=== PATIENT | female | born 1995 | race American Indian/Alaskan Native ===

== ENCOUNTER 2017-03-11 17:59 | Emergency (ER) | payer MEDICAID ==
--- NOTE | 2017-03-11 18:37 | Emergency Department Report ---
Entered by LINDA KONG, acting as scribe for SAUNDRA GUTIERREZ PA. Chief Complaint: Fall Stated Complaint: PREG/FALL/ABD PAIN Time Seen by Provider: 03/11/17 18:11 - HPI History of Present Illness: Pt that is c/o of 10, cramping periumbilical abdominal pain that began 2 days ago. Pt states she fell down a flight of stairs 2 days ago. Patient states she know she's from a positive urine test at a doctor's office, but she doesn't know how far along she is. Reports nausea and vomiting Reports low back pain Reports vaginal discharge Denies vaginal bleeding Denies urinary urgency and frequency Denies fever and chills LMP 12/03/2016 A2 Notes she has a PCP, but she denies having an OB. - ROS Review of Systems: All system are negative unless stated in HPI above. - Exam Vital Signs: Vital Signs 03/11/17 18:04 Temperature 98.4 F Pulse Rate 81 Respiratory 16 Rate Blood Pressure 114/66 O2 Sat by Pulse 100 Oximetry Physical Exam: General: well nourished, well developed, 22 year old female in no acute distress and nontoxic in appearance Abdomen: Soft, normal bowel sounds in all quadrants and negative CVA tenderness bilaterally. No guarding or rebound. Tender to palpation to periumbilical area Lungs: Clear to auscultation bilaterally, no rhonchi, wheezes, or rales. Normal work of breathing. No use of accessory muscles Cardiovascular: S1-S2, regular rate, regular rhythm. No murmurs. MSE screening note: Focused history and physical exam performed. Due to findings the following was ordered: see below ED Medical Decision Making - Medical Decision Making MDM: Patient screened by provider in triage area. Appropriate protocol initiated. Patient to be seen by MD on main ED side. ED Disposition for MSE Condition: Stable This documentation as recorded by the scribe,LINDA KONG,accurately reflects the service I personally performed and the decisions made by me,SAUNDRA GUTIERREZ PA.
[2017-03-11 19:00] LABS: Basophils % (Auto) 0.6 % (0.0-1.8); Eosinophils % (Auto) 1.6 % (0.0-4.3); Hematocrit 34.7 % (30.3-42.9); Hemoglobin 11.9 gm/dl (10.1-14.3); Mean Corpuscular HGB Conc 34 % (30-34); Mean Corpuscular Hemoglobin 32 pg (28-32); Mean Corpuscular Volume 92 fl (79-97); Platelet Count 216 K/mm3 (140-440); Red Blood Count 3.76 M/mm3 (3.65-5.03); White Blood Count 4.9 K/mm3 (4.5-11.0)
[2017-03-11 20:08] LABS: Bilirubin,Urine NEG (Negative); Blood,Urine SM (Negative); Ketones,Urine 80 mg/dL (Negative); Leukocyte Esterase,Urine TR (Negative); Mucus,Urine 3+ /HPF; Nitrite,Urine NEG (Negative)
[2017-03-11 21:45] LABS: Alanine Aminotransferase 15 units/L (7-56); Albumin 4.3 g/dL (3.9-5); Albumin/Globulin Ratio 1.6 %; Alkaline Phosphatase 53 units/L (35-129); Anion Gap 17 mmol/L; Blood Urea Nitrogen 9 mg/dL (7-17); Calcium 9.1 mg/dL (8.4-10.2); Carbon Dioxide 25 mmol/L (22-30); Chloride 97.6 mmol/L (98-107); Glucose 89 mg/dL (65-100); Lipase 12 units/L (13-60); Potassium 3.9 mmol/L (3.6-5.0); Sodium 136 mmol/L (137-145)
--- NOTE | 2017-03-11 22:57 | Emergency Department Report ---
HPI - General Chief Complaint: Fall Time Seen by Provider: 03/11/17 22:37 - HPI HPI: This is a 22-year-old Afro-Mac[place] female who presents the emergency department with complaint of some lower abdominal discomfort after falling down 4-5 stairs. She says that she tripped and fell onto her abdomen and her arm. She said that she had a bruise in both areas but that has since resolved. Since this incident she has been having nausea and vomiting and has been having trouble keeping down both liquids and solids. The patient is currently and is but she is unsure how far along she is. Her last menstrual cycle was October 24. She had 2 previous abortions. She does not currently have an SPRAYER INSECTICIDE. She is taking vitamins. No recent travel or sick contacts at home. She denies hitting her head or any loss of consciousness. ED Past Medical Hx - Past Medical History Previous Medical History?: No Hx Hypertension: No Hx Heart Attack/AMI: No Hx Congestive Heart Failure: No Hx Diabetes: No Hx Deep Vein Thrombosis: No Hx Pulmonary Embolism: No Hx Liver Disease: No Hx Renal Disease: No Hx Sickle Cell Disease: No Hx Headaches / Migraines: No Hx Seizures: No Hx Asthma: No Hx COPD: No Hx Tuberculosis: No Hx HIV: No - Surgical History Past Surgical History?: No Hx Pacemaker: No Hx Internal Defibrillator: No - Social History Smoking Status: Current Every Day Smoker Substance Use Type: Alcohol - Medications Home Medications: Home Medications Medication Instructions Recorded Confirmed Last Taken Type No Known Home Medications [No 08/13/14 03/11/17 Unknown History Reported Home Medications] ED Review of Systems ROS: Stated complaint: PREG/FALL/ABD PAIN Other details as noted in HPI Comment: All other systems reviewed and negative Constitutional: denies: chills, fever Eyes: denies: eye pain, eye discharge, vision change ENT: denies: ear pain, throat pain Respiratory: denies: cough, shortness of breath, wheezing Cardiovascular: denies: chest pain, palpitations Gastrointestinal: abdominal pain, nausea, vomiting Genitourinary: denies: urgency, dysuria, discharge Musculoskeletal: denies: back pain, joint swelling, arthralgia Skin: denies: rash, lesions Neurological: denies: headache, weakness, paresthesias Physical Exam - Physical Exam Vital Signs: Vital Signs 03/11/17 03/11/1703/11/17 18:04 21:59 22:04 Temperature 98.4 F 97.7 F Pulse Rate 81 70 68 Respiratory 16 16 18 Rate Blood Pressure 114/66 Blood Pressure 97/46 [Left] O2 Sat by Pulse 100 100 100 Oximetry Physical Exam: GENERAL: The patient is well-developed well-nourished. HEENT: Normocephalic. Atraumatic. Extraocular motions are intact. Patient has moist mucous membranes. Pupils equal reactive to light bilaterally. NECK: Supple. Trachea is midline. CHEST/LUNGS: Clear to auscultation. There is no respiratory distress noted. HEART/CARDIOVASCULAR: Regular. There is no tachycardia. There is no gallop rub or murmur. ABDOMEN: Abdomen is soft. There is some mild generalized tenderness to palpation of the abdomen. No guarding or rebound tenderness. No peritoneal signs. Patient has normal bowel sounds. There is no abdominal distention. SKIN: Skin is warm and dry. NEURO: The patient is awake, alert, and oriented. The patient is cooperative. The patient has no focal neurologic deficits. The patient has normal speech. MUSCULOSKELETAL: There is no tenderness or deformity. There is no limitation range of motion. There is no evidence of acute injury. ED Course Vital Signs 03/11/17 03/11/17 03/11/17 18:04 21:59 22:04 Temperature 98.4 F 97.7 F Pulse Rate 81 70 68 Respiratory 16 16 18 Rate Blood Pressure 114/66 Blood Pressure 97/46 [Left] O2 Sat by Pulse 100 100 100 Oximetry ED Medical Decision Making - Lab Data Result diagrams: 03/11/17 18:51 03/11/17 18:51 - Radiology Data Radiology results: report reviewed Transvaginal/ ultrasound shows a single intrauterine with a gestational age of 11 weeks and 3 days. Probable small subchorionic hemorrhage. - Medical Decision Making 22-year-old female presents to the emergency department with a complaint of lower abdominal discomfort while after falling on her abdomen a few days ago. Her belly is soft without any obvious deformities. She has good bowel sounds. An ultrasound was done that shows a live intrauterine at about 11 weeks and 3 days. The rest of her labs are unremarkable do not show any etiology of her symptoms. She did complain of some nausea and vomiting but it appears to have been going on since prior to the fall and may just be some hyperemesis. However she was given some IV fluid and after this she was able to keep down some water and even some food. She did have some dehydration on urinalysis but there was no urinary tract infection. Vital signs stable throughout her ED course. She will follow up with a primary care physician and [employer]IC[employer] and will return to the emergency department with any worsening of her symptoms or any acute distress. - Differential Diagnosis , threatened miscarriage, spontaneous miscarriage, colitis Critical Care Time: No Critical care attestation.: If time is entered above; I have spent that time in minutes in the direct care of this critically ill patient, excluding procedure time. ED Disposition Clinical Impression: Dehydration Qualifiers: Weeks of gestation: 11 weeks Qualified Code(s): Z3A.11 - 11 weeks gestation of Fall Qualifiers: Encounter type: initial encounter Qualified Code(s): W19.XXXA - Unspecified fall, initial encounter Abdominal pain Qualifiers: Abdominal location: unspecified location Qualified Code(s): R10.9 - Unspecified abdominal pain Nausea & vomiting Qualifiers: Vomiting type: unspecified Vomiting Intractability: non-intractable Qualified Code(s): R11.2 - Nausea with vomiting, unspecified Disposition: DC-01 TO HOME OR SELFCARE Is pt being admited?: No Condition: Stable Instructions: (ED), Dehydration (ED), Acute Nausea and Vomiting (ED) , Abdominal Pain (ED) Additional Instructions: Please increase her oral rehydration. Follow up with your [employer]ER INSECTICIDE in the next few days. Return to the emergency department with any worsening of your symptoms, vaginal bleeding, or any acute distress. Continue with your vitamins. You can take Tylenol every 4 hours, using weight-based dosing, as needed for discomfort. Otherwise do not take any medications that are not prescribed by a physician. Referrals: PRIMARY MD JENNIFER [Primary Care Provider] - IAN Time of Disposition: 02:04
[2017-03-11] MEDS: NACL 0.9% 1000 ML 1,000 ML IV ONE (23:10)
[2017-03-11] MEDS: TYLENOL PO ONE (23:10)
--- NOTE | 2017-03-11 23:45 | Ultrasound Report ---
FINAL REPORT PROCEDURE: Obstetrical ultrasound. TECHNIQUE: Real-time transabdominal sonography of the uterus, placenta, amniotic fluid, adnexa, and fetus was performed with image documentation. Measurements were obtained to determine age/size. M-mode Doppler was used to document heartbeat. CPT 15511 HISTORY: Patient fell on Satur, lower abdominal pain. COMPARISON: No prior studies are available for comparison. FINDINGS: The uterus measures 12.9 centimeters x 8.0 centimeters x 10.7 centimeters. The myometrium appears uniform. The left ovary appears normal in size. There is a small cyst in the left ovary. The right ovary is suboptimally visualized. The patient refused a transvaginal exam. There is an intrauterine gestational sac. There is a small hypoechoic area adjacent to the gestational sac. This measures 3.8 centimeters x 0.5 centimeters x 1.9 centimeters. It likely represents a small subchorionic hemorrhage. The crown-rump length measurement of the pole is 4.5 centimeters. This indicates a menstrual age of 11 weeks 3 days. The estimated date of confinement is 09/27/2017. Cardiac activity is documented at 169 beats per minute. The placenta is posterior in location. IMPRESSION: Single intrauterine with a menstrual age of 11 weeks 3 days. Probable small subchorionic hemorrhage.
[2017-03-12 02:12] VITALS: BP 99/51
== END 2017-03-12 02:41 | disposition home or self-care (01) ==
LOC: ED 17:59
DX: O9A.211 Injury, poisoning and certain other consequences of external causes complicating pregnancy, first trimester (principal); O21.0 Mild hyperemesis gravidarum; R10.9 Unspecified abdominal pain; E86.0 Dehydration; O99.331 Smoking (tobacco) complicating pregnancy, first trimester; Z3A.11 11 weeks gestation of pregnancy
CPT/HCPCS: 36415; 76801; 80053; 81001; 83690; 84703; 85025; 96360; 96361; 99284; J7030

== ENCOUNTER 2017-08-17 16:28 | Outpatient (CLI) | payer MEDICAID ==
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
[2017-08-17] MEDS ORDERED: LACTATED RINGERS 500 ML IV ONE (18:00)
[2017-08-17] MEDS ORDERED: TYLENOL PO ONE (18:00)
[2017-08-17] MEDS ORDERED: VISTARIL PO PRN (18:21)
[2017-08-17 18:38] VITALS: BP 92/53
== END 2017-08-17 18:50 | disposition home or self-care (01) ==
LOC: TRG 16:28
PROVIDERS: ATTEND Obstetrics & Gynecology
DX: O47.03 False labor before 37 completed weeks of gestation, third trimester (principal); Z87.891 Personal history of nicotine dependence; Z3A.34 34 weeks gestation of pregnancy
CPT/HCPCS: 59025; Q0177

== ENCOUNTER 2017-09-16 18:03 | Outpatient (CLI) | payer MEDICAID ==
[2017-09-16 18:43] VITALS: BP 106/62
== END 2017-09-16 19:18 | disposition home or self-care (01) ==
LOC: TRG 18:03
PROVIDERS: ATTEND Obstetrics & Gynecology
DX: O47.1 False labor at or after 37 completed weeks of gestation (principal); Z87.891 Personal history of nicotine dependence; Z3A.38 38 weeks gestation of pregnancy
CPT/HCPCS: 59025

== ENCOUNTER 2018-03-18 16:15 | Emergency (ER) | payer MEDICAID ==
[2018-03-18 09:50] LABS: Bacteria,Urine 1+ /HPF (Negative); Bilirubin,Urine NEG (Negative); Blood,Urine NEG (Negative); Color,Urine Yellow (Yellow); Mucus,Urine 2+ /HPF; Protein,Urine <15 mg/dL mg/dL (Negative)
--- NOTE | 2018-03-18 09:54 | Emergency Department Report ---
Blank Doc - Documentation Documentation: Patient is a 23-year-old Female who is presenting with 2 weeks of abdominal pain. Patient states that it is a cramping sensation is worse when she is trying a bowel movement. Patient does have some loose stools. Patient denies any fever nausea vomiting at this time. Patient states pain is 8 out of 10 in severity. Patient denies any abnormal vaginal bleeding or dysuria or vaginal discharge at this time. Brief physical exam patient does have diffuse abdominal discomfort with no rebound or guarding. Patient is in moderate amount of distress secondary to pain. Last been ordered and CT will be done patient be reassessed.
[2018-03-18 10:00] LABS: Basophils # (Auto) 0.1 K/mm3 (0.0-0.1); Basophils % (Auto) 0.7 % (0.0-1.8); Eosinophils # (Auto) 0.3 K/mm3 (0.0-0.4); Hematocrit 37.8 % (30.3-42.9); Hemoglobin 12.8 gm/dl (10.1-14.3); Lymphocytes # (Auto) 2.5 K/mm3 (1.2-5.4); Lymphocytes % (Auto) 29.8 % (13.4-35.0); Mean Corpuscular HGB Conc 34 % (30-34); Mean Corpuscular Hemoglobin 31 pg (28-32); Mean Corpuscular Volume 93 fl (79-97); Monocytes # (Auto) 0.5 K/mm3 (0.0-0.8); Monocytes % (Auto) 5.4 % (0.0-7.3); Platelet Count 296 K/mm3 (140-440); Red Blood Count 4.08 M/mm3 (3.65-5.03); Red Cell Distribution Width 13.7 % (13.2-15.2)
[2018-03-18 10:14] LABS: Alanine Aminotransferase 31 units/L (7-56); Albumin 4.4 g/dL (3.9-5); BUN/Creatinine Ratio 17; Blood Urea Nitrogen 12 mg/dL (7-17); Calcium 9.6 mg/dL (8.4-10.2); Hemolysis Index 89
--- NOTE | 2018-03-18 12:04 | Emergency Department Report ---
ED HPI - General Chief complaint: Abdominal Pain Stated complaint: PELVIC PAIN Time Seen by Provider: 03/18/18 09:49 Source: patient, EMS Mode of arrival: Ambulatory Limitations: No Limitations - History of Present Illness Initial comments: This is a 23-year-old female nontoxic, well nourished in appearance, no acute signs of distress presents to the ED with c/o of pelvic pain 2 weeks. Patient denies any vomiting or nausea. Patient describes pelvic pain as cramping and aching with level of 3/10 diffuse. Patient denies chest pain, short of breath, fever, chills, headache, stiff neck, numbness or tingling. Patient denies any diarrhea or constipation. Patient denies any vaginal bleeding or discharge. Patient denies any recent travels. Patient denies any allergies or PMH. MD Complaint: abdominal pain -: week(s) (2) Location: pelvis Radiation: none Severity scale (0 -10): 3 Quality: cramping, aching Consistency: constant Improves with: none Worsens with: none Associated symptoms: abdominal pain (pelvic). denies: nausea/vomiting, vaginal bleeding, vaginal discharge, dysuria, headache, vision changes, malaise, dysparuenia, rash, seizure, shortness of breath, syncope, weakness Vaginal bleeding: none :: Yes Pre-vandana care: none - Related Data Previous Rx's Medication Instructions Recorded Last Taken Type Ibuprofen [Motrin 600 MG tab] 600 mg PO Q8H PRN #30 tablet 09/17/17 1 Week Ago Rx ~10/31/17 Allergies Allergy/AdvReac Type Severity Reaction Status Date / Time No Known Allergies Allergy Verified 03/18/18 09:31 ED Review of Systems ROS: Stated complaint: PELVIC PAIN Other details as noted in HPI Constitutional: denies: chills, fever Eyes: denies: eye pain, eye discharge, vision change ENT: denies: ear pain, throat pain Respiratory: denies: cough, shortness of breath, wheezing Cardiovascular: denies: chest pain, palpitations Endocrine: no symptoms reported Gastrointestinal: abdominal pain. denies: nausea, vomiting, diarrhea Genitourinary: denies: urgency, dysuria, discharge Musculoskeletal: denies: back pain, joint swelling, arthralgia Skin: denies: rash, lesions Neurological: denies: headache, weakness, paresthesias Psychiatric: denies: anxiety, depression Hematological/Lymphatic: denies: easy bleeding, easy bruising ED Past Medical Hx - Past Medical History Hx Hypertension: No Hx Heart Attack/AMI: No Hx Congestive Heart Failure: No Hx Diabetes: No Hx Deep Vein Thrombosis: No Hx Pulmonary Embolism: No Hx Liver Disease: No Hx Renal Disease: No Hx Sickle Cell Disease: No Hx Headaches / Migraines: No Hx Seizures: No Hx Asthma: No Hx COPD: No Hx Tuberculosis: No Hx HIV: No - Surgical History Hx Pacemaker: No Hx Internal Defibrillator: No - Social History Smoking Status: Current Every Day Smoker Substance Use Type: Alcohol - Medications Home Medications: Home Medications Medication Instructions Recorded Confirmed Last Taken Type Ibuprofen [Motrin 600 MG tab] 600 mg PO Q8H PRN #30 tablet 09/17/17 11/07/17 1 Week Ago Rx ~10/31/17 ED Physical Exam - General Limitations: No Limitations General appearance: alert, in no apparent distress - Head Head exam: Present: atraumatic, normocephalic - Eye Eye exam: Present: normal appearance Pupils: Present: normal accommodation - ENT ENT exam: Present: normal exam, mucous membranes moist - Neck Neck exam: Present: normal inspection, full ROM. Absent: tenderness, meningismus, lymphadenopathy - Respiratory Respiratory exam: Present: normal lung sounds bilaterally. Absent: respiratory distress, wheezes, rales, rhonchi, stridor, chest wall tenderness, accessory muscle use, decreased breath sounds, prolonged expiratory - Cardiovascular Cardiovascular Exam: Present: regular rate, normal rhythm, normal heart sounds. Absent: bradycardia, tachycardia, irregular rhythm, systolic murmur, diastolic murmur, rubs, gallop - GI/Abdominal GI/Abdominal exam: Present: soft, tenderness (pelvic region bilateral), normal bowel sounds. Absent: distended, guarding, rebound, rigid, diminished bowel sounds - Expanded GI/Abdominal Exam Expanded GI/Abdominal exam: Absent: psoas sign, obturator sign, heel tap sign, Saldivar's sign, Rovsing's sign, tenderness at Mcburney's Point, ascites - Rectal Rectal exam: Present: deferred - Extremities Exam Extremities exam: Present: normal inspection, full ROM, normal capillary refill. Absent: tenderness - Back Exam Back exam: Present: normal inspection, full ROM - Neurological Exam Neurological exam: Present: alert, oriented X3, normal gait - Psychiatric Psychiatric exam: Present: normal affect, normal mood - Skin Skin exam: Present: warm, dry, intact, normal color. Absent: rash ED Course Vital Signs 03/18/18 03/18/18 03/18/18 09:32 10:07 10:37 Temperature 98.7 F Pulse Rate 82 Respiratory 18 16 14 Rate Blood Pressure 131/79 Blood Pressure [Left] O2 Sat by Pulse 100 Oximetry 03/18/18 03/18/18 03/18/18 12:38 13:19 13:31 Temperature 98.7 F Pulse Rate 66 Respiratory 18 16 18 Rate Blood Pressure Blood Pressure 107/54 [Left] O2 Sat by Pulse 100 Oximetry - Reevaluation(s) Reevaluation #1: 03/18/18 12:16 Patient is speaking in full sentences with no signs of distress noted. - Consultations Consultation #1: 03/18/18 12:16 Patient has been consulted with Tana Mendes about patient history, physical exam, and labs and examined and screened patient and agrees to ED plan of care. Consultation #2: 03/18/18 12:51 Patient has been consulted with Mahnaz Rivas ([facility]) about patient history, physical exam, and labs/US report and is present in the room now talking and examining patient. ED Medical Decision Making - Lab Data Result diagrams: 03/18/18 09:47 03/18/18 09:47 - Medical Decision Making This is a 23-year-old female that presents with ruptured ectopic . Patient is stable with exam by me and Dr. Looney. US obtained and dictated by the radiologist. Labs obtained. Patient was consulted and admitted with Misty Rivas for surgery. Patient was put on NPO. At time of admission, the patient does not seem toxic or ill in appearance. No acute signs of distress noted. Patient agrees to admission treatment plan of care. No further questions noted by the patient. Critical care attestation.: If time is entered above; I have spent that time in minutes in the direct care of this critically ill patient, excluding procedure time. ED Disposition Clinical Impression: Ruptured ectopic Disposition: OP ADMIT IP TO THIS HOSP Is pt being admited?: Yes Condition: Stable Instructions: Abdominal Pain (ED) Referrals: PRIMARY CARE, [Primary Care Provider] - 3-5 Days
--- NOTE | 2018-03-18 12:36 | Ultrasound Report ---
ULTRASOUND OB LESS THAN 14 WEEKS FETUS ULTRASOUND OB TRANSVAGINAL History: Pelvic pain, beta hCG level of 2665. Technique: Transabdominal and transvaginal imaging. Findings: The uterus is anteverted and measures 8 x 4 x 6 cm. No uterine mass. The endometrial stripe is normal measuring 4 mm. No intrauterine is identified. The left ovary is unremarkable measuring 1.8 x 3.4 x 1.6 cm. The right ovary measures 2.4 x 2.5 x 2.6 cm. Adjacent to the right ovary there is a complex mixed echogenicity masslike lesion measuring up to 7.5 x 3.5 x 3.8 cm. No obvious pole, heart rate or ring of fire is demonstrated in this area although it is highly suspicious for an ectopic . Large free pelvic fluid containing debris is identified. Impression: Findings concerning for a ruptured ectopic on the right side. These findings were discussed with Jayy Aguilar in the emergency department at 1225 hrs.
--- NOTE | 2018-03-18 13:07 | Short Stay Summary ---
Short Stay Documentation Date of service: 03/18/18 Narrative H&P: Pt is a 23-year-old Black female LMP 03/04/18 presents to [facility] ER with complaints of pelvic pain 2 weeks. Her pain is described as cramping and aching with level of 3/10 diffuse. She denies chest pain, short of breath, fever, chills, headache, stiff neck, numbness or tingling. Pelvic u/s showed a complex mixed echogenicity masslike lesion which is highly suspicious for an ectopic . She also had large free pelvic fluid. Her H&H was 12.8 and 37.8 and a beta hCG was 2665. She will therefore be admitted for laparoscopic salpingectomy due to suspected ruptured right ectopic . - History Principal diagnosis: Ectopic H&P: obtained from office Past Medical History: No medical history Past Surgical History: No surgical history Social history: no significant social history, single - Allergies and Medications Current Medications: Allergies No Known Allergies Allergy (Verified 03/18/18 09:31) Home Medications Medication Instructions Recorded Confirmed Last Taken Type Ibuprofen [Motrin 600 MG tab] 600 mg PO Q8H PRN #30 tablet 09/17/17 11/07/17 1 Week Ago Rx ~10/31/17 Active Medications Sodium Chloride (Nacl 0.9% 1000 Ml) 1,000 mls @ 125 mls/hr IV ONCE ONE Stop: 03/18/18 20:55 - Physical exam General appearance: mild distress Integumentary: no rash HEENT: Atraumatic Lungs: Clear to auscultation Breasts: deferred Heart: Regular rate Gastrointestinal: normal Female Genitourinary: deferred Rectal Exam: deferred Extremities: no ischemia Neurological: Normal gait, Normal speech - Brief post op/procedure progress note Date of procedure: 03/18/18 Pre-op diagnosis: Suspected right ectopic Post-op diagnosis: same (confirmed ruptured right ectopic with hemoperitoneum) Procedure: Laparoscopic right salpingectomy Anesthesia: GETA Findings: Approximately 700 mls of blood and blood clots in the abdominal cavity. Normal uterus. Normal ovaries bilaterally. Normal left fallopian tube. Ectopic in the distal portion of the right fallopian tube. Surgeon: GENTRY KAY Estimated blood loss: other (700ml) Pathology: list (right fallopian tube) Specimen disposition: to lab Condition: stable - Hospital course Hospital course: Unremarkable - Disposition Condition at discharge: Good Disposition: DC-01 TO HOME OR SELFCARE - Discharge Diagnoses (1) Hemoperitoneum due to rupture of right tubal ectopic Status: Resolved (2) Ruptured ectopic Status: Resolved Short Stay Discharge Plan Activity: no restrictions Diet: regular Wound: open to air, keep clean and dry Follow up with: PRIMARY CARE, [Primary Care Provider] - 3-5 Days GENTRY KAY MD [Staff Physician] - 7 Days Prescriptions: HYDROcodone/APAP 5-325 [[place] 5/325] 1 each PO Q6HR PRN #30 tablet PRN Reason: Pain Ibuprofen [Motrin] 800 mg PO Q8HR PRN #30 tablet PRN Reason: Moder Pain Unrelieved By [place]
--- NOTE | 2018-03-18 15:08 | Anesthesia Day of Surgery ---
Anesthesia Day of Surgery - Day of Surgery Patient Examined: Yes Patient H&P Reviewed: Yes Patient is NPO: Yes
--- NOTE | 2018-03-18 15:08 | Anesthesia Consultation ---
Anesthesia Consult and Med Hx Date of service: 03/18/18 - Airway Anesthetic Teeth Evaluation: Good ROM Head & Neck: Adequate Mental/Hyoid Distance: Adequate Mallampati Class: Class I Intubation Access Assessment: Good - Pulmonary Exam CTA: Yes - Cardiac Exam Cardiac Exam: RRR - Pre-Operative Health Status ASA Pre-Surgery Classification: ASA2, Emergency Proposed Anesthetic Plan: General (tob Hx, GERD controlled) - Pulmonary Hx Smoking: Yes Hx Asthma: No Hx Respiratory Symptoms: No SOB: No COPD: No Hx Pneumonia: No Hx Sleep Apnea: No - Cardiovascular System Hx Hypertension: No Hx Coronary Artery Disease: No Hx Heart Attack/AMI: No Hx Angina: No Hx Percutaneous Transluminal Coronary Angioplasty (PTCA): No Hx Cardia Arrhythmia: No Hx Pacemaker: No Hx Internal Defibrillator: No Hx Valvular Heart Disease: No Hx Heart Murmur: No Hx Peripheral Vascular Disease: No - Central Nervous System Hx Neuromuscular Disorder: No Hx Seizures: No CVA: No Hx Back Pain: No Hx Psychiatric Problems: No - Gastrointestinal Hx Ulcer: No Hx Gastroesophageal Reflux Disease: No - Endocrine Hx Renal Disease: No Hx End Stage Renal Disease: No Hx Liver Disease: No Hx Insulin Dependent Diabetes: No Hx Non-Insulin Dependent Diabetes: No Hx Thyroid Disease: No Hx Hypothyroidism: No Hx Hyperthyroidism: No - Hematic Hx Anemia: Yes (DURING WITH 1ST CHILD) Hx Sickle Cell Disease: No - Other Systems Hx Alcohol Use: Yes (SOCIALLY) Hx Substance Use: No Hx Cancer: No Hx Obesity: No
[~2018-03-18 16:15] MED LIST: ANCEF/STERILE WATER 2 GM/20 ML 2 GM/20 ML SYRINGE IV NR; DILAUDID IV ONE; DILAUDID IV PRN; LACTATED RINGERS 1,000 ML IV SCH; MORPHINE IV ONE; NACL 0.9% 1000 ML 1,000 ML IV ONE; PEPCID IV ONE; SUBLIMAZE IV ONE; TORADOL IV ONE; TORADOL IV PRN; VERSED IV NR; ZOFRAN IV ONE; ZOFRAN IV PRN
[2018-03-18] MEDS ORDERED: SUBLIMAZE ONE ×2 (18:46→19:41)
[2018-03-18] MEDS ORDERED: ZEMURON IV ONE (18:47)
[2018-03-18] MEDS ORDERED: XYLOCAINE MPF 2% ONE (18:47)
[2018-03-18] MEDS ORDERED: DIPRIVAN 10 MG/ML IV ONE ×2 (18:47→20:04)
[2018-03-18] MEDS ORDERED: DECADRON ONE (19:14)
[2018-03-18] MEDS ORDERED: ZOFRAN ONE (19:14)
[2018-03-18] MEDS ORDERED: BLOXIVERZ ONE (19:14)
[2018-03-18] MEDS ORDERED: ANCEF ONE (19:14)
[2018-03-18] MEDS ORDERED: ROBINUL ONE (19:14)
[2018-03-18] MEDS ORDERED: MARCAINE 0.5% INFILTRATI ONE ×2 (19:16→20:01)
[2018-03-18] MEDS ORDERED: MARCAINE 0.5% 30 ML INFILTRATI ONE (20:07)
--- NOTE | 2018-03-18 20:48 | Operative Report ---
Operative Report Operative Report: Date of procedure: 03/18/2018 Pre-operative diagnosis: 1. Suspected right ectopic Post-operative diagnosis: Ruptured right ectopic with hemoperitoneum Procedure name(s): Laparoscopic right salpingectomy Surgeon: Otto Tyler MD [employer]: None Anesthesia: Gen. endotracheal intubation by Dr. Rowe EBL: 700 mL Findings: Approximately 700 mL's of blood and blood clots in the abdominal cavity. Normal uterus. Normal ovaries bilaterally. Normal left fallopian tube. Ectopic in the distal portion of the right fallopian tube. Procedure: After the patient was correctly identified, she was prepped and draped in the usual straw fashion and placed in the dorsolithotomy position. First the bladder was emptied using a straight catheter, and the speculum was placed in the vaginal vault and the anterior lip of the cervix was grasped using single-tooth tenaculum. The uterine manipulator was then placed and the tenaculum and speculum were removed. Attention was then turned to the abdomen where first a periumbilical incision was made using the skin knife, and the Optiview trocar was inserted under direct visualization. After an adequate amount of abdominal insufflation, visualization of the pelvic organs found a large amount of blood and blood clots in the abdominal cavity. Next a suprapubic incision was made through which 5 mm trocar was placed, and the suction icu tech was used to suction blood and blood clots from the abdominal cavity. After all the blood was removed, visualization of the uterus founded to be normal. The left fallopian tube and ovary was normal. The right ovary was normal, and the ectopic was found in the distal portion of the right fallopian tube. A right lateral incision was made through which a 5 mm trocar was placed, and the tripolar cautery was used to clamp, cauterize and cut across the distal portion of the right fallopian tube. The specimen was removed using Endopouch and sent to pathology. Copious amounts of irrigation was then performed, and after good hemostasis was assured the procedure was considered complete. The Tisseel sealant was sprayed across the salpingectomy site. All instruments are removed from the abdomen. The abdomen was deflated, and the periumbilical incision was closed using 0 Vicryl suture in a figure-of- eight configuration of the fascia followed by 4 Monocryl suture in a subcuticular fashion on the skin. The suprapubic and right lateral incisions were closed in similar fashion. Each incision was infiltrated using 0.5% Marcaine solution. The uterine manipulator was removed. The patient tolerated the procedure well and was transported to recovery in stable condition.
[2018-03-18 20:56] VITALS: BP 112/58
[2018-03-18] MEDS ORDERED: NORCO 5/325 PO ONE (21:46)
[2018-03-18] MEDS ORDERED: NORCO 5/325 ONE (21:58)
== END 2018-03-18 19:38 | disposition home or self-care (01) ==
LOC: OR 16:15 → ED 19:38
DX: O00.101 Right tubal pregnancy without intrauterine pregnancy (principal); O01.9 Hydatidiform mole, unspecified; F17.200 Nicotine dependence, unspecified, uncomplicated; Z79.899 Other long term (current) drug therapy; Z72.89 Other problems related to lifestyle
CPT/HCPCS: 36415; 59151; 76801; 76817; 80053; 81001; 84702; 84703; 85025; 88305; 96374; 96375; 96376; 99284; C9250; J0690; J1100; J1170; J1885; J2270; J2405; J2704; J2710; J3010; J7030; 96361

== ENCOUNTER 2019-04-01 14:34 | Emergency (ER) | payer MEDICAID ==
[2019-04-01 14:45] VITALS: BP 113/72
--- NOTE | 2019-04-01 14:46 | Event Note ---
ED Screening Note Date of service: 04/01/19 Time: 14:40 ED Screening Note: This is a 24 y.o. F. that presents to the ER with heavy vaginal bleeding, abdominal cramping, and passing large amount of clots today. Period started 03/23/2019 and started out light until today. A2 This initial assessment/diagnostic orders/clinical plan/treatment(s) is/are subject to change based on patients health status, clinical progression and re- assessment by fellow clinical providers in the ED. Further treatment and workup at subsequent clinical providers discretion. Patient/guardian urged not to elope from the ED as their condition may be serious if not clinically assessed and managed. Initial orders include: UA and hcg
[2019-04-01 15:49] LABS: HCG Qualitative,Urine Positive (Negative)
[2019-04-01 16:01] LABS: Bilirubin,Urine NEG (Negative); Blood,Urine LG (Negative); Color,Urine Red (Yellow); Mucus,Urine 3+ /HPF
[2019-04-01 16:03] LABS: Protein,Urine >500 mg/dL (Negative); RBC,Urine > 182.0 /HPF (0.0-6.0)
== END 2019-04-01 17:45 | disposition left against medical advice (07) ==
LOC: ED 14:34
DX: N93.9 Abnormal uterine and vaginal bleeding, unspecified (principal); Z53.21 Procedure and treatment not carried out due to patient leaving prior to being seen by health care provider
CPT/HCPCS: 81001; 81025; 99283

== ENCOUNTER 2022-02-02 17:18 | Emergency (ER) | payer MEDICAID ==
[2022-02-02 17:44] VITALS: BP 121/76
== END 2022-02-04 06:44 | disposition left against medical advice (07) ==
LOC: ED 17:18
DX: H57.10 Ocular pain, unspecified eye (principal); Z53.21 Procedure and treatment not carried out due to patient leaving prior to being seen by health care provider